=== PATIENT | male | born 1980 | race Hispanic/Latino ===

== ENCOUNTER 2019-07-13 07:16 | Day surgery (SDC) | payer SELFPAY ==
[2019-07-12 14:04] LABS: Absolute Lymphocytes (CBC) 1.6 K/uL (0.7-4.9); Hematocrit 43.6 % (39.6-49.0); Lymphocytes % 31.4 % (15.3-44.8); MPV 10.3 fL (7.6-11.3); RBC Red Blood Cell Count 4.74 M/uL (4.33-5.43)
[2019-07-12 14:18] LABS: Potassium 4.4 mmol/L (3.5-5.1)
[2019-07-13] MEDS ORDERED: MIDAZOLAM HCL 2 MG/2 ML INJ ONE (07:28)
[2019-07-13] MEDS ORDERED: LIDOCAINE 1% MPF 5 ML VIAL ONE (07:28)
[2019-07-13] MEDS ORDERED: PROPOFOL 200 MG/20 ML VIAL IV ONE (07:28)
[2019-07-13] MEDS ORDERED: FENTANYL CITR 100 MCG/2 ML ONE (07:28)
[2019-07-13] MEDS ORDERED: ROCURONIUM 50 MG/5 ML VIAL IV ONE (07:28)
[2019-07-13] MEDS ORDERED: Ringers Lactate 1,000 ML IV ONE (07:29)
[2019-07-13] MEDS ORDERED: CEFAZOLIN/SWI 1gm 1 GM/10 ML SYR ONE (08:25)
[2019-07-13] MEDS ORDERED: GLYCOPYRROLATE 0.2 MG/ML SYR ONE (08:55)
[2019-07-13] MEDS ORDERED: KETOROLAC 30 MG/ML INJ ONE (08:55)
[2019-07-13] MEDS ORDERED: ONDANSETRON 4 MG/2 ML VIAL ONE (09:12)
[2019-07-13] MEDS ORDERED: NEOSTIGMINE 1 MG/ML -10 ML VIAL ONE (09:12)
--- NOTE | 2019-07-13 09:31 | P.BOP ---
Preoperative diagnosis: RLQ pain, appendicitis Postoperative diagnosis: same Primary procedure: Laparoscopic appendectomy Well Control Instructor: Viviana Do (Jamilah) Estimated blood loss: <10cc Specimen: wanda Findings: assymetrical in shape and color appendix Anesthesia: General Complications: None Transferred to: Recovery Room Condition: Good
[2019-07-13] MEDS: HYDROMORPHONE HCL 1 MG/ML INJ ONE ×2 (09:48→09:53)
[2019-07-13] MEDS ORDERED: CODEINE 30MG/APAP 300MG TAB ONE (10:36)
[2019-07-13] MEDS ORDERED: CODEINE 30MG/APAP 300MG TAB PO ONE (10:37)
--- NOTE | 2019-07-13 21:05 | OP ---
Date of Procedure: 07/13/2019 Surgeon: Ethan Bach MD Bacteriologist Soil: NATALIA Milton. Preoperative Diagnosis: Recurrent right lower quadrant abdominal pain, appendicitis. Postoperative Diagnosis: Recurrent right lower quadrant abdominal pain, appendicitis. Procedure: Laparoscopic appendectomy. Estimated Blood Loss: Less than 10 cc. Specimen: Appendix. Finding: Asymmetrical in shape and color appendix with distal erythema over it. Anesthesia: General plus local. Indications: This is a case of a male who comes to us for recurrent right lower quadrant tenderness, guarding every now and then, resolves. Got a CAT scan done, shows abnormal appendix with thickening of the appendix, abnormal in shape. He was explained the pros and cons of appendectomy. He wants a ppendix removed with the diagnostic laparoscopic appendectomy fully explained which include, not limi gladys to infection, bleeding, damage to adjacent structures, anesthesia complication, negative appendix , [place], and even . He also understands this may not relieve any symptoms. He might need more jeromy n one surgical intervention. He understood and signed a consent. Description Of Procedure: Patient was brought to the operating room, placed in supine position. Ane sthesia was done without complication. Abdominal area was prepped and draped in a sterile fashion. Marcaine 0.5% injected for local anesthetic, followed by sharp incision of the skin in the infraumbil ical region. Incision was carried down to fascia, which was opened under direct vision. Peritoneum was encountered, opened under direct vision. Vicryl #1 placed inside the fascia. Chikis trocar was carefully introduced. No bleeding was obtained. I placed 2 more trocars, 5 mm each one of them in t he suprapubic and left lower quadrant under direct visualization. Then, we proceed to diagnostic lap . We checked the small bowel and large bowel with no extraluminal masses. The appendix indeed looke d like asymmetrical in shape and color. Had some erythema at the distal tip of the append ix and also thickening of the appendix and abnormal wall. For that reason, appendectomy was decided. The area of the pelvis showed no obvious hernias and no other major abnormalities. At that moment, I created a window in the base of the appendix, transected that with Endo SERENITY 45 mm 3.5, and the mes oappendix transected with Endo SERENITY 45 mm 2.5 and hemostasis was also obtained with the help of hemocl ips. Appendix removed from abdominal cavity using an EndoCatch through the umbilical incision. The area was irrigated and suctioned. No bowel leak, no bleeding. At that moment, I proceeded to remove the trocars under direct vision. Deflated the pneumoperitoneum. Closed the fascia with #1 Vicryl. Irrigated the subcutaneous tissue, closed that with 3-0 chromic and the skin in a subcuticular closu re with 3-0 chromic and Steri-Strips on top. Sponge counts and instrument counts were correct. Lelo ent tolerated the procedure well. Patient sent to recovery in stable condition. CELIA/JADA Voice ID: [id number] Report ID: [id number]
--- NOTE | 2019-07-13 21:08 | DS ---
Date of Discharge: 07/13/2019 Diagnosis: Right lower quadrant pain, acute appendicitis. Procedure: Laparoscopic appendectomy. Disposition: Home. Activity: As tolerated. No heavy lifting. Followup: In my office in 1 week. Call for appointment, [phone]. Keep area dry for 48 hours, then may shower. Keep Steri-Strips intact. Medications: Tylenol No. 3 q.4 hours p.r.n. pain, Cipro 500 p.o. b.i.d. CELIA/JADA Voice ID: [id number] Report ID: [id number]
== END 2019-07-13 12:20 | disposition home or self-care (01) ==
LOC: OR 07:16
PROVIDERS: ATTEND Surgery
PROC: 0DTJ4ZZ Resection of Appendix, Percutaneous Endoscopic Approach (ICD-10-PCS; principal; 2019-07-13 09:00)
DX: K37 Unspecified appendicitis (principal)
CPT/HCPCS: 36415; 80048; 85025; 88304; J0690; J1170; J2250; J2405; J2704; J2710; J3010